=== PATIENT | female | born 1940 | race Caucasian/White ===

== ENCOUNTER 2018-01-03 18:26 | Inpatient (IN) ==
[2018-01-03] MEDS ORDERED: Acetaminophen 325 MG TABLET PO PRN (19:10)
[2018-01-03] MEDS: Gabapentin 400 MG CAPSULE PO SCH (20:08)
[2018-01-03] MEDS: *HR* Enoxaparin 40 MG/0.4 ML SYRINGE SQ SCH (20:09)
[2018-01-03] MEDS: *HR* OxyCODONE/APAP 5/325 TABLET PO PRN (20:09)
[2018-01-04] MEDS: *HR* OxyCODONE/APAP 5/325 TABLET PO PRN ×5 (00:03→21:14)
[2018-01-04 05:58] LABS: Basophils % 0.5 %; Eosinophils # 0.3 K/mcL (0.0-0.6); Eosinophils % 4.1 %; Hematocrit 27.7 % (35.3-44.9); Hemoglobin 8.9 g/dL (11.5-15.4); Immature Granulocytes % 1.9 % (0-4); Lymphocytes # 1.6 K/mcL (0.6-4.6); Lymphocytes % 25.8 %; Mean Corpuscular HGB Conc 32.1 g/dL (31.6-35.5); Mean Corpuscular Hemoglobin 29.5 pg (28.0-33.3); Mean Corpuscular Volume 91.7 fL (83.0-100.0); Mean Platelet Volume 9.8 fL (9.4-12.4); Monocytes # 0.6 K/mcL (0.0-1.3); Monocytes % 9.7 %; Neutrophils # 3.7 K/mcL (1.6-8.9); Platelet Count 253 K/mcL (140-400); Red Blood Count 3.02 M/mcL (3.82-4.97); Red Cell Distribution Width 13.6 % (11.5-14.5)
[2018-01-04 06:07] LABS: INR 1.1; Prothrombin Time 12.3 Seconds (9.4-12.1)
[2018-01-04 06:09] LABS: Activated Partial Thrombo Time 30.2 Seconds (26.0-36.0)
[2018-01-04 06:12] LABS: BUN/Creatinine Ratio 25 (6-26); Blood Urea Nitrogen 25 mg/dL (8-23); Carbon Dioxide 29 mEq/L (23-29); Chloride 104 mEq/L (98-107); Glucose 100 mg/dL (70-105); Osmolality,Calculated 290 (280-300); Sodium 138 mEq/L (136-145); eGFR For African Americans > 60 (> 60); eGFR For Non-African Americans 53 (> 60)
[2018-01-04] MEDS: Iron Polysaccharide Complex 150 MG CAPSULE PO SCH (08:17)
[2018-01-04] MEDS: Gabapentin 400 MG CAPSULE PO SCH ×2 (08:17→21:13)
[2018-01-04] MEDS: Cholecalciferol (D-3) 1,000 UNIT TABLET PO SCH (08:17)
[2018-01-04] MEDS: Celecoxib 200 MG CAPSULE PO SCH (08:17)
[2018-01-04] MEDS: Aspirin Enteric Coated 81 MG Tablet PO SCH (08:17)
--- NOTE | 2018-01-04 09:52 | Internal Med History&Physical ---
Date of Encounter: 01/04/18 Time of Encounter: 09:47 Assessment and Plan (1) Status post right hip replacement Current visit: Yes Status: Acute PT/OT eval and treat. will follow progress. continue current pain meds. f/u with ortho as scheduled. on lovenox for DVT prophylaxis. (2) Essential hypertension Current visit: Yes Status: Acute controlled with atenolol. monitor BP. (3) Hyperlipidemia Current visit: Yes Status: Acute continue lipitor Qualifiers: Hyperlipidemia type: mixed hyperlipidemia Qualified Code(s): E78.2 - Mixed hyperlipidemia (4) Peripheral neuropathy Current visit: Yes Status: Acute controlled with gabapentin. Qualifiers: Peripheral neuropathy type: polyneuropathy, unspecified Qualified Code(s): G62.9 - Polyneuropathy, unspecified Internal Medicine - H&P: HPI Admitted From: Hospital to Hospital Transfer Plans for Post Hospital Care: Home History of present illness: Ms. Martinez is a 77 year old female s/p right total hip replacement. surgery was at [facility] on 12/29. PMH includes: arthritis, HTN, peripheral neuropathy and hyperlipidemia. states pain is controlled with current pain medication. last BM was 3 days ago, miralax and colace ordered. maintaining appetite and hydration. denies, fever, chills, NVD. Past Med Surg Social Fam HX - Past Medical History Medical history: arthritis, atrial fibrillation, hyperlipidemia, hypertension, osteoporosis Additional medical history: bursitis - Past Surgical History Surgical History: hysterectomy, other Additional surgical history: compression back surgery Apr 2017 - Social History Smoking Status: Former smoker Alcohol use: rarely Drug use: none - Family History Sister Living Status: Hx Family Cancer: Yes Internal Medicine - H&P: Meds Acetaminophen [Tylenol] 650 mg PO Q4H PRN 01/03/18 [History] Aspirin [Lo-Dose Aspirin EC] 81 mg PO DAILY 01/03/18 [History] Atenolol [Tenormin] 100 mg PO DAILY 01/03/18 [History] Atorvastatin [Lipitor] 40 mg PO HS 01/03/18 [History] Calcium Carbonate/Vitamin D3 [Liquid Calcium 600-Vit D3 Sfgl] 1 each PO DAILY [History] Celecoxib [Celebrex] 200 mg PO DAILY 01/03/18 [History] Docusate [Colace] 100 mg PO BID 01/03/18 [History] Enoxaparin [Lovenox] 40 mg SQ HS 01/03/18 [History] Gabapentin [Neurontin] 400 mg PO DAILY 01/03/18 [History] Gabapentin [Neurontin] 800 mg PO HS 01/03/18 [History] Iron Polysaccharide Complex [Ferrex 150] 150 mg PO DAILY 01/03/18 [History] Losartan [Cozaar] 25 mg PO DAILY 01/03/18 [History] Lutein 20 mg PO DAILY 01/03/18 [History] OxyCODONE/APAP 5/325 [Percocet 5/325 MG] 1 each PO Q4HR PRN 01/03/18 [History] Oxycodone HCl/Acetaminophen [Percocet 5-325 mg Tablet] 2 each PO Q4H PRN [History] Polyethylene Glycol 3350 [MiraLAX] 17 gm PO DAILY PRN 01/03/18 [History] 3 Allergy/AdvReac Type Severity Reaction Status Date / Time No Known Drug Allergies Allergy See Verified 01/03/18 18:56 Comments All Systems PM: A 10-system review of systems was performed and is negative for pertinent findings except as documented above in the HPI. - Constitutional Constitutional: no chills, no fever(s), no night sweats - EENT Eyes: no change in vision, no discharge, no pain, no photophobia Ears: no ear discharge, no ear pain, no tinnitus Nose, mouth and throat: no dysphagia, no nasal discharge, no neck pain, no sore throat - Cardiovascular Cardiovascular ROS IM: no chest pain, no diaphoresis, no dyspnea, no lightheadedness, no palpitations, no syncope - Respiratory Respiratory: no cough, no dyspnea, no wheezing, no excessive phlegm production - Gastrointestinal Gastrointestinal: no abdominal pain, no diarrhea, no hematemesis, no hematochezia, no melena, no nausea, no vomiting - Genitourinary Genitourinary: no change in urinary stream, no dysuria, no flank pain, no hematuria - Musculoskeletal Musculoskeletal ROS IM: no numbness, no tingling - Integumentary Integumentary IM: no rash, no unusual bruising - Neurological Neurological ROS: no confusion, no convulsions, no focal weakness, no numbness, no tingling, no tremor(s) - Hematologic/Lymphatic Hematologic/Lymphatic: no easy bruising - Constitutional Vitals: Temp Pulse Resp BP Pulse Ox 97.5 F L 52 16 124/50 96 01/04/18 08:00 01/04/18 08:00 01/04/18 08:00 01/04/18 08:00 01/04/18 08:00 General appearance: Present: cooperative, A&O X 3, no acute distress, obese, answers questions appropriately - Head Head exam: Present: atraumatic, normocephalic - Eye Eye exam: Present: PERRL, conjuntiva pink, sclera anicteric Pupils: Present: PERRL - Neck Neck exam general surgery: Present: supple, trachea midline. Absent: lymphadenopathy - Respiratory Respiratory exam: Present: CTAB. Absent: accessory muscle use, rales, rhonchi, wheezes - Cardiovascular Cardiovascular exam: Present: RRR, +S1, +S2. Absent: diastolic murmur, gallop, rubs, systolic murmur - GI/Abdominal GI/Abdominal exam: Present: normal bowel sounds, soft, no peritoneal signs. Absent: distended, tenderness - Extremities Exam Extremities exam: Present: warm, radial pulses palpable and symmetrical. Absent : calf tenderness, cyanotic, pedal edema - Incison Comments: right hip incision. well approximated, slight serousanguinous drainage. luisana intact, slight ecchymosis surrounding incision. no sign of infection. - Neurological Exam Neurological exam: Present: CN II-XII intact, oriented X3, no focal deficits. Absent: pronater drift, facial droop, speech deficit - Skin Skin exam: Present: dry, intact Internal Med - H&P Results - Labs CBC & Chem 7: 01/04/18 05:45 01/04/18 05:45 Labs: Short CBC 01/04/18 Range/Units 05:45 WBC 6.3 (4.3-11.1) K/mcL Hgb 8.9 L (11.5-15.4) g/dL Hct 27.7 L (35.3-44.9) % Plt Count 253 (140-400) K/mcL Neutrophils # 3.7 (1.6-8.9) K/mcL BMP 01/04/18 05:45 Sodium 138 Potassium 4.0 Chloride 104 Carbon Dioxide 29 BUN 25 H Creatinine 1.01 Glucose 100 Calcium 9.0
[2018-01-04] MEDS: (Lutein [Lutein] 20 MG) PO SCH (12:07)
[2018-01-04] MEDS: *HR* Enoxaparin 40 MG/0.4 ML SYRINGE SQ SCH (21:13)
[2018-01-05] MEDS: *HR* OxyCODONE/APAP 5/325 TABLET PO PRN ×4 (03:28→20:35)
[2018-01-05] MEDS: (Lutein [Lutein] 20 MG) PO SCH (08:08)
[2018-01-05] MEDS: Iron Polysaccharide Complex 150 MG CAPSULE PO SCH (08:08)
[2018-01-05] MEDS: Gabapentin 400 MG CAPSULE PO SCH ×2 (08:08→20:34)
[2018-01-05] MEDS: Cholecalciferol (D-3) 1,000 UNIT TABLET PO SCH (08:08)
[2018-01-05] MEDS: Aspirin Enteric Coated 81 MG Tablet PO SCH (08:08)
[2018-01-05] MEDS: Celecoxib 200 MG CAPSULE PO SCH (08:08)
--- NOTE | 2018-01-05 14:52 | Internal Med Progress Note ---
Date of Encounter: 01/05/18 Time of Encounter: 14:49 - Assessment and plan (1) Status post right hip replacement Current Visit: Yes Status: Acute Assessment and plan: continue PT/OT. will follow progress. continue pain meds. f/u with ortho as scheduled. (2) Essential hypertension Current Visit: Yes Status: Acute Assessment and plan: controlled with current meds. monitor BP. (3) Hyperlipidemia Current Visit: Yes Status: Acute Assessment and plan: continue current meds. Qualifiers: Hyperlipidemia type: mixed hyperlipidemia Qualified Code(s): E78.2 - Mixed hyperlipidemia (4) Peripheral neuropathy Current Visit: Yes Status: Acute Assessment and plan: stable with meds. Qualifiers: Peripheral neuropathy type: polyneuropathy, unspecified Qualified Code(s): G62.9 - Polyneuropathy, unspecified (5) Pedal edema Current Visit: Yes Status: Acute Assessment and plan: will start lasix for 2 days. monitor labs. nettie hose on. - Time Spent With Patient less than 15 minutes - Subjective Interval history: participating well with therapy, pain controlled with medication. c/o edema in bilat feet and ankles. denies fever, chills, NVD or chest pain. - Constitutional Vitals: Temp Pulse Resp BP Pulse Ox 97.6 F 60 14 142/60 100 01/05/18 07:17 01/05/18 10:49 01/04/18 20:30 01/05/18 07:17 01/05/18 07:17 General appearance: Present: cooperative, A&O X 3, no acute distress, obese, answers questions appropriately - Head Head exam: Present: atraumatic, normocephalic - Eye Eye exam: Present: PERRL, conjuntiva pink, sclera anicteric Pupils: Present: PERRL - Neck Neck exam general surgery: Present: supple, trachea midline. Absent: lymphadenopathy - Respiratory Respiratory exam: Present: CTAB. Absent: accessory muscle use, rales, rhonchi, wheezes - Cardiovascular Cardiovascular exam: Present: RRR, +S1, +S2. Absent: diastolic murmur, gallop, rubs, systolic murmur - GI/Abdominal GI/Abdominal exam: Present: normal bowel sounds, soft, no peritoneal signs. Absent: distended, tenderness - Extremities Exam Extremities exam: Present: pedal edema, warm, radial pulses palpable and symmetrical. Absent: calf tenderness, cyanotic - Incison Comments: right hip surgical incision luisana intact, no drainage, incision well- approximated. - Neurological Exam Neurological exam: Present: CN II-XII intact, oriented X3, no focal deficits. Absent: pronater drift, facial droop, speech deficit - Skin Skin exam: Present: dry, intact Internal Medicine: Result - Labs CBC & Chem 7: 01/04/18 05:45 01/04/18 05:45 - ABG Interpretation ABG results: PT/INR, D-dimer PT 12.3 Seconds (9.4-12.1) H 01/04/18 05:45 Consult Discharge Plan - Plan Referrals: theresa Mathur [Other] - 01/13/18 10:30 am Kemi Sahu [facility]IST [Primary Care Provider] -
[2018-01-05] MEDS: Furosemide 20 MG TABLET PO SCH (16:19)
[2018-01-05] MEDS: *HR* Enoxaparin 40 MG/0.4 ML SYRINGE SQ SCH (20:34)
[2018-01-06] MEDS: *HR* OxyCODONE/APAP 5/325 TABLET PO PRN ×5 (01:50→22:50)
[2018-01-06] MEDS: Celecoxib 200 MG CAPSULE PO SCH (07:59)
[2018-01-06] MEDS: Aspirin Enteric Coated 81 MG Tablet PO SCH (07:59)
[2018-01-06] MEDS: Gabapentin 400 MG CAPSULE PO SCH ×2 (07:59→22:50)
[2018-01-06] MEDS: Iron Polysaccharide Complex 150 MG CAPSULE PO SCH (07:59)
[2018-01-06] MEDS: Cholecalciferol (D-3) 1,000 UNIT TABLET PO SCH (08:00)
[2018-01-06] MEDS: Furosemide 20 MG TABLET PO SCH (08:00)
[2018-01-06] MEDS: (Lutein [Lutein] 20 MG) PO SCH (08:00)
--- NOTE | 2018-01-06 10:20 | Internal Med Progress Note ---
Date of Encounter: 01/06/18 Time of Encounter: 10:18 - Assessment and plan (1) Status post right hip replacement Current Visit: Yes Status: Acute Assessment and plan: Patient progressing well with physical therapy. Surgical incision appears healthy with luisana in place. No signs of infectious process. Pain well managed with current medications. We will continue with current plan of care (2) Essential hypertension Current Visit: Yes Status: Acute Assessment and plan: Vital signs are stable. We will continue with current medications (3) Peripheral neuropathy Current Visit: Yes Status: Acute Assessment and plan: No acute issues. Patient states that her pain for her neuropathy is well controlled. Qualifiers: Peripheral neuropathy type: polyneuropathy, unspecified Qualified Code(s): G62.9 - Polyneuropathy, unspecified - Time Spent With Patient less than 15 minutes - Subjective Interval history: Patient appears relaxed and states that she currently has intermittent pain to her right hip and leg, which increases during mobilization. Patient states that her pain has been tolerable with current pain medications. Patient denies any dyspnea, fever or chills. Patient states that she fatigues during physical therapy, but believes that her therapy is going well - Constitutional Vitals: Temp Pulse Resp BP Pulse Ox 98 F 55 16 129/73 98 01/06/18 07:18 01/06/18 07:18 01/06/18 07:18 01/06/18 07:18 01/06/18 07:18 General appearance: Present: cooperative, A&O X 3, no acute distress, obese, answers questions appropriately - Head Head exam: Present: atraumatic, normocephalic - Eye Eye exam: Present: PERRL, conjuntiva pink, sclera anicteric Pupils: Present: PERRL - Neck Neck exam general surgery: Present: supple, trachea midline. Absent: lymphadenopathy - Respiratory Respiratory exam: Present: CTAB. Absent: accessory muscle use, rales, rhonchi, wheezes - Cardiovascular Cardiovascular exam: Present: RRR, +S1, +S2. Absent: diastolic murmur, gallop, rubs, systolic murmur - GI/Abdominal GI/Abdominal exam: Present: normal bowel sounds, soft, no peritoneal signs. Absent: distended, tenderness - Extremities Exam Extremities exam: Present: warm, radial pulses palpable and symmetrical. Absent : calf tenderness, cyanotic, pedal edema Additional comments: Right hip surgical staple line appears dry and intact. Minimal ecchymosis and edema noted - Neurological Exam Neurological exam: Present: CN II-XII intact, oriented X3, no focal deficits. Absent: pronater drift, facial droop, speech deficit - Skin Skin exam: Present: dry, intact Internal Medicine: Result - Labs CBC & Chem 7: 01/04/18 05:45 01/04/18 05:45 - ABG Interpretation ABG results: PT/INR, D-dimer PT 12.3 Seconds (9.4-12.1) H 01/04/18 05:45 - VTE Documentation of Mechanical Device: Graduated compression elastic hosiery Consult Discharge Plan - Plan Referrals: theresa Mathur [Other] - 01/13/18 10:30 am Kemi Sahu CNP [Primary Care Provider] -
[2018-01-06] MEDS: tiZANidine 4 MG TABLET PO PRN (22:50)
[2018-01-06] MEDS: *HR* Enoxaparin 40 MG/0.4 ML SYRINGE SQ SCH (22:50)
[2018-01-07] MEDS: Cholecalciferol (D-3) 1,000 UNIT TABLET PO SCH (09:06)
[2018-01-07] MEDS: Aspirin Enteric Coated 81 MG Tablet PO SCH (09:06)
[2018-01-07] MEDS: Iron Polysaccharide Complex 150 MG CAPSULE PO SCH (09:06)
[2018-01-07] MEDS: *HR* OxyCODONE/APAP 5/325 TABLET PO PRN ×2 (09:07→22:15)
[2018-01-07] MEDS: Celecoxib 200 MG CAPSULE PO SCH (09:07)
[2018-01-07] MEDS: Furosemide 20 MG TABLET PO SCH (09:07)
[2018-01-07] MEDS: Gabapentin 400 MG CAPSULE PO SCH ×2 (09:07→22:15)
[2018-01-07] MEDS: (Lutein [Lutein] 20 MG) PO SCH (09:08)
--- NOTE | 2018-01-07 12:48 | Internal Med Progress Note ---
Date of Encounter: 01/07/18 Time of Encounter: 12:46 - Assessment and plan (1) Status post right hip replacement Current Visit: Yes Status: Acute Assessment and plan: Doing well with therapies. We will continue as planned. (2) Muscle spasm Current Visit: Yes Status: Acute Assessment and plan: I think this is typical, with change in ambulation and compensation. Will continue ties tizanidine 2 mg every 6 hours when necessary. (3) Pedal edema Current Visit: Yes Status: Acute Assessment and plan: Improved, will follow clinically. (4) Essential hypertension Current Visit: Yes Status: Acute Assessment and plan: Clinically stable. We will continue home regimen and follow. (5) Hyperlipidemia Current Visit: Yes Status: Acute Assessment and plan: Clinically stable. We will continue home regimen and follow. Qualifiers: Hyperlipidemia type: mixed hyperlipidemia Qualified Code(s): E78.2 - Mixed hyperlipidemia (6) Peripheral neuropathy Current Visit: Yes Status: Acute Assessment and plan: Clinically stable. We will continue home regimen and follow. Qualifiers: Peripheral neuropathy type: polyneuropathy, unspecified Qualified Code(s): G62.9 - Polyneuropathy, unspecified - Subjective Interval history: Patient without acute complaint. Had some swelling and pain in her operative leg, yesterday and nursing asked for muscle relaxant. This helped her pain and help to sleep all night. We discussed this, and she will use only at night, if needed. Patient has no complaint of chest discomfort, dyspnea, orthopnea, palpitations, nausea or vomiting, constipation or diarrhea, other changes in bowel habits, difficulty with urination, rash or itching, or other new complaints, except as mentioned above. Review of systems is otherwise negative. - Constitutional Vitals: Temp Pulse Resp BP Pulse Ox 97.7 F 52 19 138/80 97 01/07/18 06:32 01/07/18 06:32 01/07/18 06:32 01/07/18 06:32 01/07/18 06:32 General appearance: Present: cooperative, A&O X 3, no acute distress, obese, answers questions appropriately Exam: Examination: (Except as mentioned above): General: In no apparent distress. Alert and oriented 3. Nondiaphoretic. Head: Atraumatic and normocephalic. Respiratory: No use of accessory muscles. Lungs are clear throughout. Normal airflow. Cardiovascular: Regular rate and rhythm without murmur appreciated. Abdomen: Bowel sounds are normal. No hepatosplenomegaly mass or tenderness appreciated. Obese and therefore difficult to palpate deeply. Extremities: No cyanosis clubbing but she has trace edema, left greater than right. Skin: Warm and non-diaphoretic with no new lesions noted. Internal Medicine: Result - Labs CBC & Chem 7: 01/04/18 05:45 01/04/18 05:45 - ABG Interpretation ABG results: PT/INR, D-dimer PT 12.3 Seconds (9.4-12.1) H 01/04/18 05:45 - VTE Documentation of Mechanical Device: Graduated compression elastic hosiery Consult Discharge Plan - Plan Referrals: theresa Mathur [Other] - 01/13/18 10:30 am Kemi Sahu CNP [Primary Care Provider] -
[2018-01-07] MEDS: *HR* Enoxaparin 40 MG/0.4 ML SYRINGE SQ SCH (22:14)
[2018-01-07] MEDS: tiZANidine 4 MG TABLET PO PRN (22:16)
[2018-01-08] MEDS: Gabapentin 400 MG CAPSULE PO SCH ×2 (09:14→20:12)
[2018-01-08] MEDS: Cholecalciferol (D-3) 1,000 UNIT TABLET PO SCH (09:14)
[2018-01-08] MEDS: Iron Polysaccharide Complex 150 MG CAPSULE PO SCH (09:14)
[2018-01-08] MEDS: Aspirin Enteric Coated 81 MG Tablet PO SCH (09:15)
[2018-01-08] MEDS: Celecoxib 200 MG CAPSULE PO SCH (09:15)
[2018-01-08] MEDS: (Lutein [Lutein] 20 MG) PO SCH (09:16)
[2018-01-08] MEDS: *HR* OxyCODONE/APAP 5/325 TABLET PO PRN ×3 (09:20→20:12)
--- NOTE | 2018-01-08 16:16 | Internal Med Progress Note ---
Date of Encounter: 01/08/18 Time of Encounter: 16:14 - Assessment and plan (1) Status post right hip replacement Current Visit: Yes Status: Acute Assessment and plan: Home soon. We will continue as planned. Tolerating therapies well and enjoying her day off. (2) Muscle spasm Current Visit: Yes Status: Acute Assessment and plan: Doing better with nocturnal try tizanidine.. (3) Pedal edema Current Visit: Yes Status: Acute Assessment and plan: Improved, will continue to follow clinically. (4) Essential hypertension Current Visit: Yes Status: Acute Assessment and plan: Clinically stable. We will continue home regimen and follow. (5) Hyperlipidemia Current Visit: Yes Status: Acute Assessment and plan: Clinically stable. We will continue home regimen and follow. Qualifiers: Hyperlipidemia type: mixed hyperlipidemia Qualified Code(s): E78.2 - Mixed hyperlipidemia (6) Peripheral neuropathy Current Visit: Yes Status: Acute Assessment and plan: Clinically stable. We will continue home regimen and follow. Qualifiers: Peripheral neuropathy type: polyneuropathy, unspecified Qualified Code(s): G62.9 - Polyneuropathy, unspecified - Subjective Interval history: Patient without acute complaint. Feels that muscle spasm and swelling are doing better. No other issues. Talked about discharge plans with patient and , at length. Patient has no complaint of chest discomfort, dyspnea, orthopnea, palpitations, nausea or vomiting, constipation or diarrhea, other changes in bowel habits, difficulty with urination, rash or itching, or other new complaints, except as mentioned above. Review of systems is otherwise negative. - Constitutional Vitals: Temp Pulse Resp BP Pulse Ox 98.1 F 60 18 122/59 96 01/08/18 07:54 01/08/18 07:54 01/08/18 07:54 01/08/18 07:54 01/08/18 07:54 General appearance: Present: cooperative, A&O X 3, no acute distress, obese, answers questions appropriately Exam: Examination: (Except as mentioned above): General: In no apparent distress. Alert and oriented 3. Nondiaphoretic. Head: Atraumatic and normocephalic. Respiratory: No use of accessory muscles. Lungs are clear throughout. Normal airflow. Cardiovascular: Regular rate and rhythm without murmur appreciated. Abdomen: Bowel sounds are normal. No hepatosplenomegaly mass or tenderness appreciated. Obese and therefore difficult to palpate deeply. Extremities: No cyanosis clubbing or edema. Skin: Warm and non-diaphoretic with no new lesions noted. Internal Medicine: Result - Labs CBC & Chem 7: 01/04/18 05:45 01/04/18 05:45 - ABG Interpretation ABG results: PT/INR, D-dimer PT 12.3 Seconds (9.4-12.1) H 01/04/18 05:45 - VTE Documentation of Mechanical Device: Graduated compression elastic hosiery Consult Discharge Plan - Plan Referrals: theresa Mathur [Other] - 01/13/18 10:30 am Kemi Sahu CNP [Primary Care Provider] -
[2018-01-08] MEDS: *HR* Enoxaparin 40 MG/0.4 ML SYRINGE SQ SCH (20:10)
[2018-01-08] MEDS: tiZANidine 4 MG TABLET PO PRN (20:12)
[2018-01-09 05:32] LABS: Basophils % 0.5 %; Eosinophils # 0.2 K/mcL (0.0-0.6); Eosinophils % 3.3 %; Hematocrit 28.4 % (35.3-44.9); Hemoglobin 8.8 g/dL (11.5-15.4); Immature Granulocytes % 1.6 % (0-4); Lymphocytes # 1.5 K/mcL (0.6-4.6); Lymphocytes % 23.1 %; Mean Corpuscular Hemoglobin 29.1 pg (28.0-33.3); Mean Platelet Volume 9.6 fL (9.4-12.4); Monocytes # 0.5 K/mcL (0.0-1.3); Monocytes % 7.8 %; Neutrophils # 4.1 K/mcL (1.6-8.9); Nucleated Red Blood Cells 0.5 /100 WBC (0); Platelet Count 302 K/mcL (140-400); Red Blood Count 3.02 M/mcL (3.82-4.97); Red Cell Distribution Width 14.3 % (11.5-14.5); Segmented Neutrophils % 63.7 %
[2018-01-09 05:40] LABS: INR 1.1; Prothrombin Time 12.7 Seconds (9.4-12.1)
[2018-01-09 05:42] LABS: Activated Partial Thrombo Time 33.2 Seconds (26.0-36.0)
[2018-01-09 05:50] LABS: BUN/Creatinine Ratio 20 (6-26); Blood Urea Nitrogen 20 mg/dL (8-23); Calcium 9.1 mg/dL (8.6-10.3); Carbon Dioxide 31 mEq/L (23-29); Chloride 105 mEq/L (98-107); Glucose 97 mg/dL (70-105); Osmolality,Calculated 297 (280-300); Potassium 4.8 mEq/L (3.5-5.1); Sodium 142 mEq/L (136-145); eGFR For African Americans > 60 (> 60); eGFR For Non-African Americans 55 (> 60)
[2018-01-09] MEDS: Gabapentin 400 MG CAPSULE PO SCH ×2 (08:07→20:07)
[2018-01-09] MEDS: Celecoxib 200 MG CAPSULE PO SCH (08:07)
[2018-01-09] MEDS: Aspirin Enteric Coated 81 MG Tablet PO SCH (08:07)
[2018-01-09] MEDS: Iron Polysaccharide Complex 150 MG CAPSULE PO SCH (08:07)
[2018-01-09] MEDS: (Lutein [Lutein] 20 MG) PO SCH (08:08)
[2018-01-09] MEDS: Cholecalciferol (D-3) 1,000 UNIT TABLET PO SCH (08:08)
[2018-01-09] MEDS: *HR* OxyCODONE/APAP 5/325 TABLET PO PRN ×2 (08:10→20:08)
--- NOTE | 2018-01-09 11:31 | Internal Med Progress Note ---
Date of Encounter: 01/09/18 Time of Encounter: 11:29 - Assessment and plan (1) Status post right hip replacement Current Visit: Yes Status: Acute Assessment and plan: continue PT/OT. will follow progress. continue pain meds. f/u with ortho as scheduled. (2) Essential hypertension Current Visit: Yes Status: Acute Assessment and plan: controlled with current meds. monitor BP. (3) Hyperlipidemia Current Visit: Yes Status: Acute Assessment and plan: continue current meds. Qualifiers: Hyperlipidemia type: mixed hyperlipidemia Qualified Code(s): E78.2 - Mixed hyperlipidemia (4) Peripheral neuropathy Current Visit: Yes Status: Acute Assessment and plan: stable with meds. continue gabapentin. Qualifiers: Peripheral neuropathy type: polyneuropathy, unspecified Qualified Code(s): G62.9 - Polyneuropathy, unspecified (5) Pedal edema Current Visit: Yes Status: Acute Assessment and plan: resolved. nettie hose on. - Time Spent With Patient less than 15 minutes - Subjective Interval history: participating well with therapy, pain controlled with medication. ambulating with walker with SBA with therapy. denies fever, chills, NVD or chest pain. - Constitutional Vitals: Temp Pulse Resp BP Pulse Ox 98.2 F 62 16 131/57 94 01/09/18 07:23 01/09/18 08:30 01/09/18 08:30 01/09/18 07:23 01/09/18 08:30 General appearance: Present: cooperative, A&O X 3, no acute distress, obese, answers questions appropriately - Head Head exam: Present: atraumatic, normocephalic - Eye Eye exam: Present: PERRL, conjuntiva pink, sclera anicteric Pupils: Present: PERRL - Neck Neck exam general surgery: Present: supple, trachea midline. Absent: lymphadenopathy - Respiratory Respiratory exam: Present: CTAB. Absent: accessory muscle use, rales, rhonchi, wheezes - Cardiovascular Cardiovascular exam: Present: RRR, +S1, +S2. Absent: diastolic murmur, gallop, rubs, systolic murmur - GI/Abdominal GI/Abdominal exam: Present: normal bowel sounds, soft, no peritoneal signs. Absent: distended, tenderness - Extremities Exam Extremities exam: Present: warm, radial pulses palpable and symmetrical. Absent : calf tenderness, cyanotic, pedal edema - Incison Comments: right hip surgical incision, well aproximated, no drainage. luisana intact. - Neurological Exam Neurological exam: Present: CN II-XII intact, oriented X3, no focal deficits. Absent: pronater drift, facial droop, speech deficit - Skin Skin exam: Present: dry, intact Internal Medicine: Result - Labs CBC & Chem 7: 01/09/18 05:00 01/09/18 05:00 Labs: Short CBC 01/09/18 Range/Units 05:00 WBC 6.4 (4.3-11.1) K/mcL Hgb 8.8 L (11.5-15.4) g/dL Hct 28.4 L (35.3-44.9) % Plt Count 302 (140-400) K/mcL Neutrophils # 4.1 (1.6-8.9) K/mcL BMP 01/09/18 05:00 Sodium 142 Potassium 4.8 Chloride 105 Carbon Dioxide 31 H BUN 20 Creatinine 0.99 Glucose 97 Calcium 9.1 - ABG Interpretation ABG results: PT/INR, D-dimer PT 12.7 Seconds (9.4-12.1) H 01/09/18 05:00 - VTE Documentation of Mechanical Device: Graduated compression elastic hosiery Consult Discharge Plan - Plan Referrals: theresa Mathur [Other] - 01/13/18 10:30 am Kemi Sahu CNP [Primary Care Provider] -
[2018-01-09] MEDS: *HR* Enoxaparin 40 MG/0.4 ML SYRINGE SQ SCH (20:06)
[2018-01-09] MEDS: tiZANidine 4 MG TABLET PO PRN (20:08)
--- NOTE | 2018-01-10 09:26 | Internal Med Progress Note ---
Date of Encounter: 01/10/18 Time of Encounter: 09:23 - Assessment and plan (1) Status post right hip replacement Current Visit: Yes Status: Acute Assessment and plan: continue PT/OT. will follow progress. continue pain meds. f/u with ortho as scheduled. (2) Essential hypertension Current Visit: Yes Status: Acute Assessment and plan: controlled with current meds. monitor BP. (3) Hyperlipidemia Current Visit: Yes Status: Acute Assessment and plan: continue current meds. Qualifiers: Hyperlipidemia type: mixed hyperlipidemia Qualified Code(s): E78.2 - Mixed hyperlipidemia (4) Peripheral neuropathy Current Visit: Yes Status: Acute Assessment and plan: Continue gabapentin. Will discuss with physician about increasing dose. Qualifiers: Peripheral neuropathy type: polyneuropathy, unspecified Qualified Code(s): G62.9 - Polyneuropathy, unspecified (5) Pedal edema Current Visit: Yes Status: Acute - Subjective Interval history: participating well with therapy, hip pain controlled with medication, but complaining of neuropathy or nerve pain and bilateral lower extremities. States this has been going on since her back surgery last year. She is on gabapentin but does not feel like that is working at all. Therapy noted a blister on right heel. Educated patient on keeping heels elevated and floating while in bed. Having difficulty straightening right leg. Hip flexors and hamstrings are tight. Taking Zanaflex at bedtime. Instructed and discussed patient to take it through the day also. ambulating with walker with SBA with therapy. denies fever, chills, NVD or chest pain. - Constitutional Vitals: Temp Pulse Resp BP Pulse Ox 97.6 F 52 16 114/76 96 01/10/18 07:09 01/10/18 07:09 01/10/18 07:09 01/10/18 07:09 01/10/18 07:09 General appearance: Present: cooperative, A&O X 3, no acute distress, obese, answers questions appropriately - Head Head exam: Present: atraumatic, normocephalic - Eye Eye exam: Present: PERRL, conjuntiva pink, sclera anicteric Pupils: Present: PERRL - Neck Neck exam general surgery: Present: supple, trachea midline. Absent: lymphadenopathy - Respiratory Respiratory exam: Present: CTAB. Absent: accessory muscle use, rales, rhonchi, wheezes - Cardiovascular Cardiovascular exam: Present: RRR, +S1, +S2. Absent: diastolic murmur, gallop, rubs, systolic murmur - GI/Abdominal GI/Abdominal exam: Present: normal bowel sounds, soft, no peritoneal signs. Absent: distended, tenderness - Extremities Exam Extremities exam: Present: warm, radial pulses palpable and symmetrical. Absent : calf tenderness, cyanotic, pedal edema - Incison Comments: Right hip incision well approximated, no drainage. Odell intact. - Neurological Exam Neurological exam: Present: CN II-XII intact, oriented X3, no focal deficits. Absent: pronater drift, facial droop, speech deficit - Skin Skin exam: Present: dry, intact Additional comments: Blister intact to right heel. Internal Medicine: Result - Labs CBC & Chem 7: 01/09/18 05:00 01/09/18 05:00 - ABG Interpretation ABG results: PT/INR, D-dimer PT 12.7 Seconds (9.4-12.1) H 01/09/18 05:00 - VTE Documentation of Mechanical Device: Graduated compression elastic hosiery Consult Discharge Plan - Plan Referrals: theresa Mathur [Other] - 01/13/18 10:30 am Kemi Sahu CNP [Primary Care Provider] -
[2018-01-10] MEDS: Cholecalciferol (D-3) 1,000 UNIT TABLET PO SCH (09:43)
[2018-01-10] MEDS: *HR* OxyCODONE/APAP 5/325 TABLET PO PRN ×2 (09:44→22:27)
[2018-01-10] MEDS: Aspirin Enteric Coated 81 MG Tablet PO SCH (09:44)
[2018-01-10] MEDS: Celecoxib 200 MG CAPSULE PO SCH (09:44)
[2018-01-10] MEDS: Gabapentin 400 MG CAPSULE PO SCH ×2 (09:45→22:26)
[2018-01-10] MEDS: Iron Polysaccharide Complex 150 MG CAPSULE PO SCH (09:45)
[2018-01-10] MEDS: (Lutein [Lutein] 20 MG) PO SCH (09:46)
[2018-01-10] MEDS: *HR* Enoxaparin 40 MG/0.4 ML SYRINGE SQ SCH (22:27)
[2018-01-10] MEDS: tiZANidine 4 MG TABLET PO PRN (22:27)
[2018-01-11 09:09] VITALS: BP 146/69
[2018-01-11] MEDS: Aspirin Enteric Coated 81 MG Tablet PO SCH (09:14)
[2018-01-11] MEDS: Celecoxib 200 MG CAPSULE PO SCH (09:14)
[2018-01-11] MEDS: Cholecalciferol (D-3) 1,000 UNIT TABLET PO SCH (09:14)
[2018-01-11] MEDS: Iron Polysaccharide Complex 150 MG CAPSULE PO SCH (09:14)
[2018-01-11] MEDS: Gabapentin 400 MG CAPSULE PO SCH (09:14)
[2018-01-11] MEDS: *HR* OxyCODONE/APAP 5/325 TABLET PO PRN ×2 (09:15→12:23)
[2018-01-11] MEDS: (Lutein [Lutein] 20 MG) PO SCH (09:15)
--- NOTE | 2018-01-11 11:33 | Discharge Summary ---
Orders not resulted at time of discharge: Pending orders 01/16/18 04:00 BMP [Basic Metabolic Panel] MO CBC [Complete Blood Count] [HEME] MO PTT [Activated Partial Thrombo Time] [COAG] MO Prothrombin Time INR [COAG] MO 01/23/18 04:00 BMP [Basic Metabolic Panel] MO CBC [Complete Blood Count] [HEME] MO PTT [Activated Partial Thrombo Time] [COAG] MO Prothrombin Time INR [COAG] MO 01/30/18 04:00 BMP [Basic Metabolic Panel] MO CBC [Complete Blood Count] [HEME] MO PTT [Activated Partial Thrombo Time] [COAG] MO Prothrombin Time INR [COAG] MO 02/06/18 04:00 BMP [Basic Metabolic Panel] MO CBC [Complete Blood Count] [HEME] MO PTT [Activated Partial Thrombo Time] [COAG] MO Prothrombin Time INR [COAG] MO 02/13/18 04:00 BMP [Basic Metabolic Panel] MO CBC [Complete Blood Count] [HEME] MO PTT [Activated Partial Thrombo Time] [COAG] MO Prothrombin Time INR [COAG] MO Date of Encounter: 01/11/18 Time of Encounter: 11:31 - Discharge Diagnosis (1) Status post right hip replacement Priority: Primary Status: Acute Comments: Right hip surgical incision appears dry and intact. Nani remain in place, but patient has follow-up visit in 2 days with orthopedics and will have nani removed at that time. No signs of infection, ecchymosis or edema. Patient continue physical therapy as outpatient (2) Essential hypertension Priority: Secondary Status: Acute Comments: No acute issues during stay of facility. Patient to continue with all medications at home (3) Peripheral neuropathy Priority: Secondary Status: Chronic Comments: No acute issues while at facility. Patient to continue with home medications at home Qualifiers: Peripheral neuropathy type: polyneuropathy, unspecified Qualified Code(s): G62.9 - Polyneuropathy, unspecified Hospital course: Ms. Martinez is a 77 year old female, s/p right total hip replacement. Surgery was at [facility] on 12/29 with an uneventful recovery. Patient progressed well with physical therapy while at this facility. Pain was well managed with oral medications. Surgical incision appears healthy with no ecchymosis or edema noted. Incision is intact with nani, but patient is to follow-up with orthopedics in 2 days for staple removal. Patient is to continue with physical therapy as outpatient. Patient is being discharged with prescriptions for [place] and Zanaflex. PMH includes: arthritis, HTN, peripheral neuropathy and hyperlipidemia. states pain is controlled with current pain medication. Discharge discussed with: patient Time spent discussing smoking cessation with patient: 3 to 10 minutes - Time Spent with Patient Total time spent providing and/or coordinating discharge services: Less than 30 minutes - Discharge Medications Home Medications: Acetaminophen [Tylenol] 650 mg PO Q4H PRN 01/03/18 [History] Aspirin [Lo-Dose Aspirin EC] 81 mg PO DAILY 01/03/18 [History] Atenolol [Tenormin] 100 mg PO DAILY 01/03/18 [History] Atorvastatin [Lipitor] 40 mg PO HS 01/03/18 [History] Calcium Carbonate/Vitamin D3 [Liquid Calcium 600-Vit D3 Sfgl] 1 each PO DAILY [History] Celecoxib [Celebrex] 200 mg PO DAILY 01/03/18 [History] Docusate [Colace] 100 mg PO BID 01/03/18 [History] Enoxaparin [Lovenox] 40 mg SQ HS 01/03/18 [History] Gabapentin [Neurontin] 400 mg PO DAILY 01/03/18 [History] Gabapentin [Neurontin] 800 mg PO HS 01/03/18 [History] Iron Polysaccharide Complex [Ferrex 150] 150 mg PO DAILY 01/03/18 [History] Losartan [Cozaar] 25 mg PO DAILY 01/03/18 [History] Lutein 20 mg PO DAILY 01/03/18 [History] OxyCODONE/APAP 5/325 [Percocet 5/325 MG] 1 each PO Q4HR PRN 01/03/18 [History] Oxycodone HCl/Acetaminophen [Percocet 5-325 mg Tablet] 2 each PO Q4H PRN [History] Polyethylene Glycol 3350 [MiraLAX] 17 gm PO DAILY PRN 01/03/18 [History] Allergies/Adverse Reactions: 3 Allergy/AdvReac Type Severity Reaction Status Date / Time No Known Drug Allergies Allergy See Verified 01/03/18 18:56 Comments Date of admission: 01/03/18 18:26 Primary care physician: Kemi Sahu CNP Consults: 07/03/18 19:12 Consult to Occupational Therapy [CONS] Routine Comment: Evaluate, develop and implement POC Reason for Consult: rehab Does patient have active BEDREST order?: No Is patient medically & hemodynamically stable?: Yes Patient assessed for mobility or mobilized this visit?: Yes Consult to Physical Medicine/Rehab [CONS] Routine Reason for Consult: rehab Call Completed: No Consult to Physical Therapy [CONS] Routine Comment: Evaluate, develop and implement POC Reason for Consult: rehab Does patient have active BEDREST order?: No Is patient medically & hemodynamically stable?: Yes Patient assessed for mobility or mobilized this visit?: Yes Consult to Recreational Therapy [CONS] Routine Comment: Evaluate, develop and implement POC Consult to Engineering Assistant [CONS] Routine Reason for SW Consult: rehab s/p Rt THR Discharging clinician: Jesus Shepherd - Constitutional Vitals: Temp Pulse Resp BP Pulse Ox 97.8 F 52 16 146/69 97 01/11/18 06:00 01/11/18 06:00 01/11/18 06:00 01/11/18 06:00 01/11/18 06:00 General appearance: Present: cooperative, A&O X 3, no acute distress, obese, answers questions appropriately - Head Head exam: Present: atraumatic, normocephalic - Eye Eye exam: Present: PERRL, conjuntiva pink, sclera anicteric Pupils: Present: PERRL - Neck Neck exam general surgery: Present: supple, trachea midline. Absent: lymphadenopathy - Respiratory Respiratory exam: Present: CTAB. Absent: accessory muscle use, rales, rhonchi, wheezes - Cardiovascular Cardiovascular exam: Present: RRR, +S1, +S2. Absent: diastolic murmur, gallop, rubs, systolic murmur - GI/Abdominal GI/Abdominal exam: Present: normal bowel sounds, soft, no peritoneal signs. Absent: distended, tenderness - Extremities Exam Extremities exam: Present: warm, radial pulses palpable and symmetrical. Absent : calf tenderness, cyanotic, pedal edema Additional comments: Right hip staple line appears healthy, dry and intact - Neurological Exam Neurological exam: Present: CN II-XII intact, oriented X3, no focal deficits. Absent: pronater drift, facial droop, speech deficit - Skin Skin exam: Present: dry, intact - Patient Status Disposition: Home, Self-Care Condition: Good Functional capacity at discharge: uses cane/walker Overall status at discharge: patient is progressing back to baseline - Discharge Instructions Follow Up With: theresa Mathur [Other] - 01/13/18 10:30 am Kemi Sahu, RICHA [Primary Care Provider] - - Diet and Activity Activity: ambulate only with your walker, as per physical therapy, increase activity as tolerated, resume usual activities as tolerated Diet: advance to your usual diet - VTE Documentation of Mechanical Device: Graduated compression elastic hosiery
== END 2018-01-11 14:56 | disposition home or self-care (01) | DRG 560 ==
LOC: INPGRE 18:26